=== PATIENT | female | born 1950 | race Caucasian/White ===

== ENCOUNTER 2018-08-18 09:52 | Emergency (ER) | payer MEDICARE, BC ==
[~2018-08-18] VITALS: Ht 167.6 cm; Wt 112.5 kg
--- NOTE | 2018-08-18 11:52 | Diagnostic Imaging Report ---
EXAMINATION: CHEST 2 VIEWS INDICATION: Cough, evaluate for pneumonia. COMPARISON: None FINDINGS: TUBES and LINES: None. LUNGS: Lungs are well inflated. There is no evidence of pneumonia or pulmonary edema. PLEURA: No pleural effusion or pneumothorax. HEART AND MEDIASTINUM: The cardiomediastinal silhouette is unremarkable. Atherosclerotic calcifications of the aortic arch. BONES AND SOFT TISSUES: No acute osseous lesion. Soft tissues are unremarkable. Surgical clips project over the bilateral breasts. Degenerative changes of the visualized spine. UPPER ABDOMEN: No free air under the diaphragm. IMPRESSION: No acute radiographic abnormality. No evidence of pneumonia. Signed by: Dr. Aaron Leong MD on 08/18/2018 11:49 AM
[2018-08-18 12:59] VITALS: BP 133/63
== END 2018-08-18 13:04 | disposition home or self-care (01) ==
LOC: ER 09:52
DX: R50.9 Fever, unspecified (principal); R05 Cough; M79.10 Myalgia, unspecified site; J00 Acute nasopharyngitis [common cold]
CPT/HCPCS: 71046; 87400; 99283

== ENCOUNTER 2018-09-09 10:25 | Emergency (ER) | payer MEDICARE, BC ==
[~2018-09-09] VITALS: Ht 162.6 cm; Wt 109.8 kg
--- OUTSIDE RECORDS SUMMARY | 2018-09-09 10:28 | XMS REPORT ---
[facility] Address Unknown Phone Unavailable Care Team Providers Care Lens Shaper Grinder Name Role Phone Marek VILLALPANDO Unavailable Unavailable Problems This patient has no known problems. Allergies, Adverse Reactions, Alerts This patient has no known allergies or adverse reactions. Medications This patient has no known medications. Results Test Description Test Time Test Comments Text Results Atomic Results Result Comments CHEST 2 VIEWS 2018-08-18 11:21:00 [place] [id number] Patient Name: KRYSTINA BLUE MR #: [id number] : 1950 Age/Sex: 67/F Req #: [id number] Adm Physician: Ordered by: CHIKI ALEJANDRO [employer] PRODUCT TESTER Report #: [id number] Location: ER Room/Bed: Procedure: [id number] DX/CHEST 2 VIEWS Exam Date: 08/18/18 Exam Time: 1115 REPORT STATUS: Signed EXAMINATION: CHEST 2 VIEWS INDICATION: Cough, eval uate for pneumonia. COMPARISON: None FINDINGS: TUBES and LINES: None. LUNGS: Lungs are well inflated. There is no evidence of pneumonia or pulmonary edema. PLEURA: No pleural effusion or pneumothorax. HEART AND MEDIASTINUM: The cardiomediastinal silhouette is unremarkable. Atherosclerotic calcifications of the aortic arch. BONES AND SOFT TISSUES: No acute osseous lesion. Soft tissues are unremarkable. Surgical clips project over the bilateral breasts. Degenerative changes of the visualized spine. UPPER ABDOMEN: No free air under the diaphragm. IMPRESSION: No acute radiographic abnormality. No evidence of pneumonia. Signed by: Dr. Beverley Miller MD on 08/18/2018 11:49 AM Dictated By: BEVERLEY MILLER MD [id number] Transcribed By: DONOVAN on 08/18/18 1149 COPY TO: CHIKI ALEJANDRO NP
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
[2018-09-09 10:55] VITALS: BP 152/85
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
== END 2018-09-09 12:14 | disposition home or self-care (01) ==
LOC: ER 10:25
DX: S00.83XA Contusion of other part of head, initial encounter (principal); M54.2 Cervicalgia; S16.1XXA Strain of muscle, fascia and tendon at neck level, initial encounter; W01.0XXA Fall on same level from slipping, tripping and stumbling without subsequent striking against object, initial encounter; Y92.008 Other place in unspecified non-institutional (private) residence as the place of occurrence of the external cause; I10 Essential (primary) hypertension
CPT/HCPCS: 70450; 72125; 99283